=== PATIENT | female | born 1990 | race Caucasian/White ===

== ENCOUNTER 2022-01-21 05:10 | Inpatient (IN) | payer OTHER ==
[~2022-01-21] VITALS: Ht 162.6 cm; Wt 69.4 kg
[2022-01-21 06:32] LABS: HEMOGLOBIN 11.3 gm/dl (12.3-15.3); RED BLOOD COUNT 3.89 M/UL (4.00-5.10); WHITE BLOOD COUNT 8.5 K/UL (4.5-11.0)
[2022-01-21] MEDS ORDERED: PRENATAL TABLE1 EAC1 PO (07:51)
[2022-01-21] MEDS ORDERED: FEOSOL325 MG PO (07:51)
[2022-01-21] MEDS ORDERED: HYDROCODON-ACE1 EAC4 PO (09:45)
[2022-01-21] MEDS ORDERED: DOCUSATE SODIU100 MG PO (09:45)
[2022-01-21] MEDS ORDERED: IBUPROFEN600 MG PO (09:45)
[2022-01-22 06:18] LABS: HEMOGLOBIN 10.7 gm/dl (12.3-15.3)
== END 2022-01-22 17:12 | disposition home or self-care (01) | DRG 788 ==
LOC: OB 05:10
PROVIDERS: Obstetrics & Gynecology; ADMIT Obstetrics & Gynecology
PROC: 4A1HXCZ Monitoring of Products of Conception, Cardiac Rate, External Approach (ICD-10-PCS; 2022-01-21)
PROC: 10D00Z1 Extraction of Products of Conception, Low, Open Approach (ICD-10-PCS; principal; 2022-01-21 07:30)
DX: O34.211 Maternal care for low transverse scar from previous cesarean delivery (principal); O99.344 Other mental disorders complicating childbirth; Z20.822 Contact with and (suspected) exposure to COVID-19; Z37.0 Single live birth; Z3A.39 39 weeks gestation of pregnancy; F41.9 Anxiety disorder, unspecified; Z86.73 Personal history of transient ischemic attack (TIA), and cerebral infarction without residual deficits; Z80.0 Family history of malignant neoplasm of digestive organs; O69.81X0 Labor and delivery complicated by cord around neck, without compression, not applicable or unspecified
CPT/HCPCS: 36415; 81001; 82800; 85014; 85018; 85025; C9113; J0690; J1170; J2210; J2405; J2590